=== PATIENT | male | born 1950 | race Caucasian/White ===

== ENCOUNTER 2017-01-10 18:31 | Inpatient (IN) | payer MEDICARE, MEDICAID ==
[~2017-01-10] VITALS: Ht 182.9 cm; Wt 97.2 kg
[~2017-01-10 18:31] MED LIST: FLO4 PO; GLU5 PO; LISINOPRIL40 MG PO; METFORMIN HCL1000 MG PO; PAROXETINE HCL20 M1 PO; SIMVASTATIN40 M1 PO; TRAMADOL HCL50 MG PO; ULT50 PO
--- NOTE | 2017-01-10 18:37 | NUR ---
PT AMBULATORY TO LOBBY. PT A&OX4, BREATHING E/U. PT AWAITING ROOM AVAILABILITY.
--- NOTE | 2017-01-10 19:22 | NUR ---
REC'D PT AAOX4, SPEECH CLEAR. C/O GENERALIZED WEAKNESS. ALSO STATES 3 WEEKS AGO SHE HAD LEFT SIDE CHEST PAIN WITH NUMBNESS TO LEFT ARM. C/O LANE, WILL MEDICATE ORDERED. AMBULATORY WITH STEADY GAIT. ON RA, BREATHING E/U, NO SOB NOTED. WILL CONTINUE TO MONITOR.
[2017-01-10 19:38] LABS: RED CELL DISTRIBUTION WIDTH 13.6 % (11.5-14.5)
[2017-01-10 19:39] LABS: CALCIUM 8.7 mg/dL (8.5-10.1); CARBON DIOXIDE 26.7 mmol/L (21-32); CREATININE SERUM 1.3 mg/dL (0.7-1.3); POTASSIUM SERUM 4.8 mmol/L (3.5-5.1)
--- NOTE | 2017-01-10 19:40 | NUR ---
PT AMBULATED TO RESTROOM WITH STEADY GAIT TO VOID, SENT TO LAB.
[2017-01-10 19:43] LABS: ALBUMIN 3.7 g/dL (3.4-5.0); BILIRUBIN TOTAL 0.37 mg/dL (0.20-1.00)
[2017-01-10 19:56] LABS: PLATELET COUNT 73 x10^3mcL (130-400)
--- NOTE | 2017-01-10 19:57 | NUR ---
DR. TAVERAS IN TO SEE PT FOR MSE
[2017-01-10] MEDS ORDERED: LANTUS SOLOS100 U/M1 SQ (20:05)
[2017-01-10 20:11] LABS: UA SPECIFIC GRAVITY >=1.030 (1.005-1.035); microscopic required? YES; urine erythrocyte NEGATIVE (NEGATIVE)
[2017-01-10 20:34] LABS: AMPHETAMINE QUAL UR NONE DETECTED (NEG <=1000)
[2017-01-10 20:37] LABS: MAGNESIUM 2.3 mg/dL (1.8-2.4); PHOSPHOROUS 4.4 mg/dL (2.5-4.9)
[2017-01-10 20:41] LABS: CHOLESTEROL/HDL RATIO 3.5
--- NOTE | 2017-01-10 20:41 | NUR ---
REPORT GIVEN TO JUVE JOSHUA FOR CONTINUITY OF CARE IN [facility]
[2017-01-10 20:46] LABS: FREE T4 1.42 ng/dL (0.76-1.46); FREE THYROXINE INDEX 4.3 ug/dL (1.4-4.5)
[2017-01-10 20:49] LABS: T3 TOTAL 1.76 ng/mL
[2017-01-10 21:10] VITALS: BP 126/77
[2017-01-10 21:12] LABS: ATYPICAL LYMPH 2 %; BAND NEUTROPHIL 5 % (0-10); METAMYELOCTE 1 % (0-2); MONOCYTE 18 % (0-7); PATH REVIEW for HEMA YES; SEGMENTED NEUTROPHILS 43 % (37-75); rbc morphology (normal/abnorm) NORMAL (NORMAL)
--- NOTE | 2017-01-10 21:15 | NUR ---
RECEIVED PT FROM ED VIA NIR. ORIENTED PT TO ROOM AND SURROUNDINGS. IV NOTED TO LFA PATENT AND INTACT. TELE 52 PLACED ON PT READING NSR. INSTRUCTED PT ON THE USE OF CALL LIGHT FOR ASSISTANCE. ENDORSED PT TO PRIMARY NURSE MITCHEL
[2017-01-10 21:56] VITALS: BP 126/77
--- NOTE | 2017-01-10 22:20 | NUR ---
RECEIVED PT FROM JOSIANE JOSE. PT AOX4. TELE # 52, SR. DENIES CP/PRESSURE. PULSES PRESENT, NO EDEMA NOTED. LUNG SOUNDS CLEAR, ON RA. DENIES SOB/DIFFICULTY BREATHING. BOWEL SOUNDS ACTIVE. VOIDS FREELY. AMBULATORY. SKIN INTACT. IV IN LFA, INTACT AND PATENT. BED IN LOWEST POSITION. CALL LIGHT WITHIN REACH. WILL CONTINUE TO MONITOR.
--- NOTE | 2017-01-11 01:10 | NUR ---
PT RESTING IN BED. RR EVEN AND UNLABORED. NO ACUTE DISTRESS NOTED. CALL LIGHT WITHIN REACH. BED IN LOWEST POSITION. CALL LIGHT WITHIN REACH. WILL CONTINUE TO MONITOR.
[2017-01-11 05:32] VITALS: BP 133/79
[2017-01-11 06:49] LABS: CALCIUM 7.8 mg/dL (8.5-10.1); CARBON DIOXIDE 23.3 mmol/L (21-32); CHLORIDE SERUM 106 mmol/L (98-107); CREATININE SERUM 0.8 mg/dL (0.7-1.3); GFR1 > 60 mL/min; GLUCOSE SERUM 78 mg/dL (74-106); POTASSIUM SERUM 3.9 mmol/L (3.5-5.1); SODIUM SERUM 140 mmol/L (136-145)
[2017-01-11 07:00] LABS: RED CELL DISTRIBUTION WIDTH 13.8 % (11.5-14.5)
[2017-01-11 07:02] LABS: PLATELET COUNT 53 x10^3mcL (130-400)
--- NOTE | 2017-01-11 07:30 | NUR ---
PATIENT RECEIVED. AT THIS TIME THE PATIENT IS RESTING IN BED. NO SIGNS OF ACUTE DISTRESS. IV INFUSING PER ORDER. TELE MONITOR IN PLACE. PATIENT DENIES PAIN. NO SOB NOTED. WILL CONTINUE TO MONITOR.
[2017-01-11 08:08] LABS: ATYPICAL LYMPH 2 %; BAND NEUTROPHIL 6 % (0-10); BASOPHIL 0 % (0-2); SEGMENTED NEUTROPHILS 45 % (37-75)
[2017-01-11 08:09] LABS: MONOCYTE 16 % (0-7)
--- NOTE | 2017-01-11 09:30 | NUR ---
PHYSICIANS MADE ROUNDS AND UPDATED THE PATIENT ON THE PLAN OF CARE AT THIS TIME. PATIENT IS AGREEABLE TO PLAN OF CARE. PATIENT WAS NOT STARTED ON HEPARIN DRIP BY PHYSICIANS DUE TO LOW PLATELET COUNT. AT THIS TIME THE PATIENT IS RESTING IN BED. DENIES PAIN. NO SOB NOTED. VITAL SIGNS STABLE. WILL CONTINUE TO MONITOR.
[2017-01-11 10:01] VITALS: BP 144/86
[2017-01-11 14:38] VITALS: BP 122/69
--- NOTE | 2017-01-11 15:00 | NUR ---
PATIENT IS RESTING IN BED WITH FAMILY AT BEDSIDE. AT THIS TIME THE PATIENT HAS NO C/O CHEST PAIN. VITAL SIGNS ARE STABLE. IV INFUSING PER ORDER. WILL CONTINUE TO MONITOR.
[2017-01-11 17:04] VITALS: BP 137/83
--- NOTE | 2017-01-11 18:40 | NUR ---
PT IS IN BED WITH FAMILY VISITING AT BEDSIDE. PATIENT DENIES PAIN AT THIS TIME. NO SOB NOTED. IV INFUSING PER ORDER. WILL CONTINUE TO MONITOR AND ENDORSE TO NEXT SHIFT AT SHIFT CHANGE.
--- NOTE | 2017-01-11 20:00 | NUR ---
PT A/A/O X4, FAMILY AT BEDSIDE. PT DENIES DIZZINESS AND HEADACHE. BREATH SOUNDS CLEAR. BREATHING EVEN AND UNLABORED ON ROOM AIR. DENIES CHEST PAIN AND PRESSURE. BOWEL SOUNDS ACTIVE. NO C/O N/V AND ABD PAIN. IV INTACT ON THE LEFT FOREARM INFUSING WITH NS AT 100 ML/HR. MADE PT COMFORTABLE. PLACED CALL LIGHT WITH IN REACH. WILL CONTINUE TO MONITOR.
--- NOTE | 2017-01-11 20:24 | NUR ---
PT C/O LEFT HIP PAIN. GAVE PT MORPHINE IVP. PT TOLERATED IT WELL. WILL CONTINUE TO MONITOR.
[2017-01-11 21:03] VITALS: Ht 182.9 cm; Wt 97.2 kg
[2017-01-11 22:02] VITALS: BP 125/83
--- NOTE | 2017-01-12 00:36 | NUR ---
PT RESTING WITH EYES CLOSED. NO DISTRESS AND DISCOMFORT NOTED. WILL CONTINUE TO MONITOR.
[2017-01-12 05:49] VITALS: BP 139/81
--- NOTE | 2017-01-12 06:34 | NUR ---
PT QUIET AND RESTING. NO C/O PAIN THUS FAR. IV INTACT AND INFUSING ORDERED. PT SIGNED CONSENT FOR CARDIAC CATH USING GROUND INSTRUCTOR ADVANCED PHONE WITH INDUSTRIAL ORGANIZATIONAL PSYCHOLOGIST # [id number]. WILL ENDORSE TO THE AM NURSE ACCORDINGLY.
--- NOTE | 2017-01-12 08:26 | NUR ---
PT RECEIVED. AT THIS TIME THE PATIENT IS RESTING IN BED. AAOX4. TELE [address] RESPIRATIONS ARE EVEN AN UNLABORED ON ROOM AIR. PATIENT DENIES ALL PAIN. NO SOB. DENIES N/V. PATIENT IS AMBULATORY WITH STEADY GAIT. NS INFUSING AT 100ML/HR IN LFA. ALL SAFETY PRECAUTIONS IN PLACE. WILL CONTINUE TO MONITOR.
[2017-01-12 09:29] VITALS: BP 133/76
--- NOTE | 2017-01-12 12:00 | NUR ---
PT HAS BEEN RESTING IN BED AND INTERACTING WITH FAMILY AT BEDSIDE. PATIENT HAS BEEN OCCASIONALLY AMBULATING THROUGH THE HALLWAYS THROUGHOUT THE SHIFT. GAIT IS STEADY AND BALANCED. VITAL SIGNS STABLE. NO COMPLAINTS OF PAIN. WILL CONTINUE TO MONITOR. ALL SAFETY PRECAUTIONS IN PLACE.
--- NOTE | 2017-01-12 14:00 | NUR ---
PATIENT HAS BEEN RESTING IN BED. NO C/O PAIN AT THIS TIME. VITAL SIGNS STABLE. NO ACUTE DISTRESS NOTED. NO SOB. DENIES CHEST PAIN. WILL CONTINUE TO MONITOR. ALL SAFETY PRECAUTIONS IN PLACE.
[2017-01-12 16:13] VITALS: BP 133/76
[2017-01-12 17:06] VITALS: BP 134/75
--- NOTE | 2017-01-12 17:40 | NUR ---
TR BAND HAS BEEN REMOVED FROM PATIENT AT THIS TIME. NO BLEEDING IS PRESENT. PATIENT CONTINUES TO USE ARM BRACE TO LIMIT MOVEMENT OF EXTREMITY. INSERTION SITE FOR CATHETER HAS BEEN COVERED WITH A BANDAID. WILL CONTINUE TO MONITOR FOR BLEEDING. NO SIGNS OF ACUTE DISTRESS ON PATIENT AT THIS TIME.
--- NOTE | 2017-01-12 17:49 | NUR ---
PT IS COMPLAINING OF 6/10 CHEST PAIN AT THIS TIME. DENIES NAUSEA, DENIES DIZZINESS. NO SOB AT THIS TIME. PATIENT RESPIRATIONS UNLABORED ON ROOM AIR. PT STATES HE HAS AN ACHE IN THE RIGHT SIDE OF HIS CHEST. BP 139/83. P78. SPO2 96%. T 98.2F. DR DE PAZ HAS BEEN NOTIFIED AND STATES HE WILL SEE THE PATIENT. WILL GIVE NITROSTAT.
--- NOTE | 2017-01-12 18:00 | NUR ---
PT DENIES ANY PAIN AT THIS MOMENT. STATES CHEST PAIN IS NOT PRESENT. NITROSTAT NOT GIVEN BECAUSE PATIENT STATES THERE IS NO CHEST PAIN. DR DE PAZ ASSESSED PATIENT AT THIS TIME. WILL AWAIT NEW ORDERS. WILL CONTINUE TO MONITOR.
--- NOTE | 2017-01-12 19:20 | NUR ---
PATIENT IS CURRENTLY INTERACTING WITH HIS FAMILY AT BEDSIDE. NO C/O CHEST PAIN. NO SOB. NO SIGNS OF ACUTE DISTRESS NOTED. NO DIZZINESS. NO BLEEDING FROM INCISION SITE FOR ANGIOGRAPHY. PATIENT HAS BEEN ENDORSED TO DIRT SUPERVISOR NURSE. ALL SAFETY MEASURES IN PLACE.
--- NOTE | 2017-01-12 19:45 | NUR ---
PT AWAKE AND ALERT C/O LEFT HIP PAIN. GAVE PT NORCO PO. PT TOLERATED IT WELL. ENCOURAGE THE PT NOT TO DRIVE AFTER TAKING MEDICATION. IV WAS DC'D FROM THE LEFT FOREARM. AND TELE MONITOR TAKEN OF. PT NOTED WITH A SLING ON THE RIGHT WRIST, S/P CARDIAC CATH. NO BLEEDING NOTED ON SITE. GAVE PT DC INSTRUCTION. PT AND THE PATIENTS FAMILY VERBALIZED UNDERSTANDING. PT WAS DC'D AMBULATING ACCOMPANIED BY THE COIL INSPECTOR AND THE PATIENTS FAMILY.
== END 2017-01-12 19:45 | disposition home or self-care (01) | DRG 640 ==
LOC: ED 18:31 → DU 19:52
PROVIDERS: Emergency Medicine; Internal Medicine Interventional Cardiology; ADMIT Family Medicine
PROC: B2111ZZ Fluoroscopy of Multiple Coronary Arteries using Low Osmolar Contrast (ICD-10-PCS; 2017-01-12)
PROC: B2151ZZ Fluoroscopy of Left Heart using Low Osmolar Contrast (ICD-10-PCS; 2017-01-12)
PROC: 4A023N7 Measurement of Cardiac Sampling and Pressure, Left Heart, Percutaneous Approach (ICD-10-PCS; principal; 2017-01-12 12:00)
DX: E86.0 Dehydration (principal); N17.0 Acute kidney failure with tubular necrosis; E11.65 Type 2 diabetes mellitus with hyperglycemia; R74.0 Nonspecific elevation of levels of transaminase and lactic acid dehydrogenase [LDH]; E78.2 Mixed hyperlipidemia; I10 Essential (primary) hypertension; N40.0 Benign prostatic hyperplasia without lower urinary tract symptoms; Z68.29 Body mass index [BMI] 29.0-29.9, adult; Z87.891 Personal history of nicotine dependence; Z96.642 Presence of left artificial hip joint; Z79.4 Long term (current) use of insulin
CPT/HCPCS: CLHCL; 82962; 83880; 84439; 85060; C1769; C1887; C1894; J0696; J1644; J1885; J2001; J2250; J2270; J3010; J3490; J7030; J7050; Q0092; Q9967

== ENCOUNTER 2018-11-04 17:56 | Inpatient (IN) | payer OTHER, MEDICAID ==
[~2018-11-04] VITALS: Ht 170.2 cm; Wt 103.6 kg
[~2018-11-04 17:56] MED LIST changes: +LANTUS SOLOS100 U/M1 SQ
[2018-11-04 18:01] VITALS: Ht 170.2 cm; Wt 103.6 kg
--- NOTE | 2018-11-04 18:01 | NUR ---
PT BIBA FROM [facility] FOR CHEST PAIN THAT STARTED APPROX 1 HR PRIOR TO ARRIVAL TO ED. PT WAS EATING DINNER WITH FAMILY WHEN CHEST PRESSURE STARTED TO LEFT SIDE OF CHEST RADIATING TO BACK AND TO BOTH ARMS. PT STS HE TOOK HIS "HIGH BLOOD PRESSURE MEDICATION". PT ALSO STS PRIOR TO MEDICS ARRIVAL, HIS BS WAS 500 AND GAVE HIMSELF A DOSE OF INSULIN. UPON MEDICS ARRIVAL, MEDICS STATED THAT PT WAS IN MODERATE DISTRESS WITH CHEST PAIN AT 8/10. MEDICS GAVE PT 250ML IV BOLUS, 1 NITRO SPRAY AND 1 0.4MG SL NITRO, AND 325MG ASA PLASTERER HELPER. UPON ARRIVAL, PT HAD RESIDUAL CHEST PAIN AT 5/10. MEDICS STARTED 18G IV TO L AC. PT IS AAOX4, RESPS E/U; SPEAKING IN CLEAR AND COMPLETE SENTENCES. CONNECTED TO FULL MACHINE STRAP BUCKLER AND OXYGEN AT THIS TIME
--- NOTE | 2018-11-04 18:17 | NUR ---
RT AT BEDSIDE FOR ABG
--- NOTE | 2018-11-04 18:18 | NUR ---
PT EDUCATED ON MEDICATION PER EMAR; VERBALIZED UNDERSTANDING. MEDICATED AND TOELRATED WELL. CONNECTED TO FULL CM AND OXYGEN AT THIS TIME
--- NOTE | 2018-11-04 18:25 | NUR ---
LAB AT BEDSIDE WITH PT .
--- NOTE | 2018-11-04 18:33 | NUR ---
PROVIDED WITH URINAL TO PROVIDE URINE SAMPLE
[2018-11-04 18:51] LABS: BASOPHIL % 0.3 % (0-2); PLATELET COUNT 159 x10^3mcL (130-400); RED CELL DISTRIBUTION WIDTH 13.3 % (11.5-14.5)
[2018-11-04 19:12] LABS: CALCIUM 8.5 mg/dL (8.5-10.1); CARBON DIOXIDE 22.3 mmol/L (21-32); CHLORIDE SERUM 101 mmol/L (98-107); CREATININE SERUM 0.9 mg/dL (0.7-1.3); GFR1 > 60 mL/min; GLUCOSE SERUM 383 mg/dL (74-106); SODIUM SERUM 135 mmol/L (136-145)
--- NOTE | 2018-11-04 19:15 | NUR ---
REPORT GIVEN FROM ROSALINDA JOSHUA. PT A&0X4, SPEAKING FULL CLEAR SENTENCES. BREATHING EVEN AND UNLABORED. CM AND [address] PT LAYING WITH HOB RAISED IN POSITION OF COMFORT. FAMILY AT BEDSIDE. WILL CONTINUE TO MONITOR.
--- NOTE | 2018-11-04 19:16 | NUR ---
GAVE REPORT TO JOSIANE CASTANON
[2018-11-04 19:18] LABS: ALBUMIN 3.6 g/dL (3.4-5.0); ALKALINE PHOSPHATASE 116 U/L (46-116); ALT/SGPT 44 U/L (16-63); AST/SGOT 11 U/L (15-37); BILIRUBIN TOTAL 0.3 mg/dL (0.20-1.00); CHOLESTEROL 172 mg/dL (<200); LIPASE 157 IU/L (73-393); TOTAL PROTEIN, SERUM 6.8 g/dL (6.4-8.2)
[2018-11-04 19:23] LABS: CHOLESTEROL/HDL RATIO 6.6; HDL CHOLESTEROL 26 mg/dL (40-60); TRIGLYCERIDES 416 mg/dL (<150)
[2018-11-04 19:24] LABS: T3 TOTAL 1.1 ng/mL
[2018-11-04 19:27] LABS: FREE T4 0.98 ng/dL (0.76-1.46); FREE THYROXINE INDEX 2.2 ug/dL (1.4-4.5); T4(THYROXINE) 6.6 ug/dL (4.7-13.3)
[2018-11-04 19:33] LABS: microscopic required? NO
[2018-11-04 19:38] LABS: urine erythrocyte NEGATIVE (NEGATIVE)
--- NOTE | 2018-11-04 20:05 | NUR ---
OKAY PER DR SPAIN TO GIVE INSULIN REGULAR 8 U IV FOR BS OF 342.
--- NOTE | 2018-11-04 20:20 | NUR ---
FAMILY ASKED ABOUT PLAN OF CARE AT THIS TIME. EDUCATED PATIENT THAT DR SPAIN IS REVIEWING THE PATIENTS RESULTS AND WILL SPEAK TO THE FAMILY ABOUT PLAN OF CARE. DR SPAIN AWARE OF PTS AND FAMILY REQUEST AND STATES HE WILL SPEAK WITH FAMILY. PT IN NAD. BREATHING EVEN AND UNLABORED. PT A&0X4, SPEAKING FULL CLEAR SENTENCES. CM AND [address] FAMILY AT BEDSIDE. WILL CONTINUE TO MONITOR.
--- NOTE | 2018-11-04 20:44 | NUR ---
CALLED RYAN AT [facility] TO UPDATE ABOUT PATIENT STATUS. QUESTIONS ANSWERED AND RYAN DENIED ANY FURTHER QUESTIONS AT THIS TIME.
--- NOTE | 2018-11-04 21:39 | NUR ---
REPORT GIVEN TO TRACY JOSHUA.
--- NOTE | 2018-11-04 21:45 | NUR ---
PT TRANSFERED TO TELE AT THIS TIME IN NAD. BREATHING EVEN AND UNLABORED. PT AWAKE AND ALERT, SPEAKING FULL CLEAR SENTENCES. PT AND FAMILY VERBALIZED UNDERSTANDING OF PLAN OF CARE. PT TRANSFERED VIA [employer] [employer] ACCOMPANIED BY ME AND MICHAELA EMT.
[2018-11-04 22:07] VITALS: BP 142/83
--- NOTE | 2018-11-04 22:10 | NUR ---
RECEIVED PT FROM ED VIA GAVIN. ORIENTED PT TO ROOM AND SURROUNDINGS. IV NOTED TO LAC PATENT AND INTACT. 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 INSTRUCTED PT ON THE USE OF CALL LIGHT FOR ASSISTANCE. ENDORSED PT TO PRIMARY NURSE TRACY
--- NOTE | 2018-11-04 22:34 | NUR ---
[facility] PAGED FOR ADMITTING ORDERS
--- NOTE | 2018-11-04 22:50 | NUR ---
RECIEVED PT FROM SURU RN IN NO ACUTE DISTRESS. PLACED ON TELE #27, SR WITH 1ST DEGREE AND BBB. DENIES CP AT THIS TIME. SL TO LAC, PATENT. ORIENTED TO ROOM. BED IN LOWEST POSITION, 2 SIDE RAILS UP, CALL LIGHT IN REACH. INSTRUCTED TO CALL FOR ASSISTANCE.
[2018-11-05 03:50] LABS: CK-MB 2.5 ng/mL (0-3.6)
[2018-11-05 06:05] VITALS: BP 142/91
--- NOTE | 2018-11-05 06:13 | NUR ---
NO C/O CP OVERNIGHT. NO ACUTE DISTRESS NOTED. WILL ENDORSE TO ONCOMING RN
[2018-11-05 06:35] LABS: BASOPHIL % 0.2 % (0-2); PLATELET COUNT 164 x10^3mcL (130-400)
[2018-11-05 06:52] LABS: ALBUMIN 3.4 g/dL (3.4-5.0); ALKALINE PHOSPHATASE 75 U/L (46-116); ALT/SGPT 42 U/L (16-63); AST/SGOT 16 U/L (15-37); BILIRUBIN TOTAL 0.42 mg/dL (0.20-1.00); CALCIUM 8.6 mg/dL (8.5-10.1); CARBON DIOXIDE 22.7 mmol/L (21-32); CHLORIDE SERUM 107 mmol/L (98-107); CREATININE SERUM 0.8 mg/dL (0.7-1.3); GFR1 > 60 mL/min; GLUCOSE SERUM 206 mg/dL (74-106); POTASSIUM SERUM 4.3 mmol/L (3.5-5.1); SODIUM SERUM 142 mmol/L (136-145); TOTAL PROTEIN, SERUM 6.7 g/dL (6.4-8.2)
--- NOTE | 2018-11-05 07:35 | NUR ---
RECEIVED PT'S REPORT FROM LEAVING NURSE. PT REST ON BED, AROUSABLE WITH VERBALLY RESPONSE. PT DENIED ANY DISCOMFORT AT THIS TIME. PT BREATHING ON O2 2L VIA NC, EVEN, UNLABORED. IV SITE SALINE LOCK AT THIS TIME.
[2018-11-05 08:10] VITALS: BP 134/86
[2018-11-05 11:24] LABS: CK-MB 2.3 ng/mL (0-3.6)
--- NOTE | 2018-11-05 11:30 | NUR ---
GOT MT REPORT PT HAD 4 SEC VT. CHECKED PT, PT RESTING ON BED WITH HIS FAMILY MEMBERS AT BEDSIDE. PT DENIED ANY CHEST DISCOMFORT. WILL CONTINUE TO MONITOR.
[2018-11-05 13:17] VITALS: BP 147/86
--- NOTE | 2018-11-05 16:17 | NUR ---
DR. CHATTERJEE AWARE ABOUT PT HAD A EPISODE VT THIS MORNING. DR. CHATTERJEE TALKED TO DR. ROBLES TO HOLD PT'S DISCHARGE FOR ONE MORE DAY. START PT'S NEW MEDS. WILL CONTINUE TO MONITOR.
[2018-11-05 17:19] VITALS: BP 140/89
--- NOTE | 2018-11-05 18:15 | NUR ---
THROUGH DAY, PT NO COMPLAIN OF CHEST PAIN, BUT L LEG PAIN FOR PREVIOUS INJURY. PT REFUSED TO BE TRANSFERED TO [facility] FOR [facility]C CUTTER. TALKE TO DR. ROBLES TO KEEP PT TONIGHT BECAUSE PT HAD A EPISODE VT THIS MORNING. NEW MEDS PLAVIX AND TOPROL GIVEN. PT BREATHING ON RA, EVEN, UNLABORED. PT NO COMPLAIN OF SOB WITHOUT SOB. IV SITE SALINE LOCK. WILL ENDORSE PT'S CARE TO COMING NURSE.
--- NOTE | 2018-11-05 19:30 | NUR ---
PT IS A/O x4. ON TELE #27, SR WITH BBB. DENIES ANY CHEST PAIN OR PRESSURE. PULSES ARE PRESENT. NO EDEMA NOTED. LUNGS CLEAR IN ALL FEILDS. ON RA, DENIES ANY SOB. EQUAL CHEST RISE AND FALL. NO SIGN OF RESP DISTRESS. BOWEL SOUNDS PRESENT x4. DENIES ANY ABD PAIN OR DISTRESS. VOIDS FREELY. SKIN WARM AND INTACT. SALINE LOCKED ON LAC, INTACT AND PATENT. NO SIGN OF IRRITATION OR INFILTRATION NOTED. DENIES ANY PAIN AT THIS TIME. BED IS AT LOWEST SETTING. CALL LIGHT WITHIN REACH. WILL CONTINUE TO MONTIOR.
[2018-11-05 20:44] VITALS: BP 133/78
--- NOTE | 2018-11-06 02:08 | NUR ---
PT IS RESTING IN BED WITH BOTH EYES CLOSED. BREATHING EVEN AND UNLABORED. NO SIGN OF DISTRESS NOTED. BED IS AT LOWEST SETTING. CALL LIGHT WITHIN REACH. WILL CONTINUE TO MONTIOR.
[2018-11-06 05:58] VITALS: BP 140/81
--- NOTE | 2018-11-06 06:58 | NUR ---
PT RESTING IN BED. DENIES ANY PAIN OR DISTRESS. NO ACUTE EVENT OCCURED AT NIGHT. BED IS AT LOWEST SETTING. CALL LIGHT WITHIN REACH. WILL ENDORSE TO AM NURSE.
--- NOTE | 2018-11-06 07:40 | NUR ---
PATIENT RESTING IN BED, NO ACUTE DISTRESS NOTED. PATIENT ON ROOM AIR, DENIES SOB. PATIENT DENIES CHEST PAIN, TELE MONITOR IN PLACE. IV TO LAC SALINE LOCK, NO S/S OF INFILTRATION. CALL LIGHT WITHIN REACH, BED IN LOW POSITION. WILL CONTINUE TO MONITOR FOR CHANGES.
--- NOTE | 2018-11-06 08:14 | NUR ---
IT OPERATIONS MANAGER AT BEDSIDE.
[2018-11-06 09:20] VITALS: BP 136/85
[2018-11-06] MEDS ORDERED: CLOPIDOGREL75 M1 PO (10:33)
[2018-11-06] MEDS ORDERED: METOPROLOL SUCC25 M2 PO (10:33)
--- NOTE | 2018-11-06 11:40 | NUR ---
PATIENT IS UP AND AMBULATING HALLWAYS, NO ACUTE DISTRESS NOTED, ON ROOM AIR. STEADY, SLOW GAIT NOTED. WILL CONTINUE TO MONITOR PATIENT.
[2018-11-06 15:21] VITALS: BP 119/66
--- NOTE | 2018-11-06 15:35 | NUR ---
PATIENT WAS DISCHARGED HOME, PATIENT WAS TAKEN DOWN VIA WHEELCHAIR BY SENIOR LABEL SPECIALIST. PATIENT RECEIVED COPY OF D/C INSTRUCTION. PATIENT UNDERSTANDS AND AGREES WITH D/C PLAN OF CARE AND INSTRUCTIONS, INCLUDING FOLLOW UP WITH PCP AND MEDICATIONS. TELE MONITOR REMOVED, ARMBANDS REMOVED. IV TO LAC REMOVED, CATH INTACT. ALL QUESTIONS AND CONCERNS ADDRESSED. PATIENT TOOK HOME ALL PERSONAL BELONGING.
== END 2018-11-06 15:40 | disposition home or self-care (01) | DRG 291 ==
LOC: ED 17:56 → DU 21:08
PROVIDERS: Specialist; ADMIT Internal Medicine Pulmonary Disease
DX: I11.0 Hypertensive heart disease with heart failure (principal); E11.00 Type 2 diabetes mellitus with hyperosmolarity without nonketotic hyperglycemic-hyperosmolar coma (NKHHC); I50.9 Heart failure, unspecified; E11.65 Type 2 diabetes mellitus with hyperglycemia; I50.32 Chronic diastolic (congestive) heart failure; I42.9 Cardiomyopathy, unspecified; E78.5 Hyperlipidemia, unspecified; E66.01 Morbid (severe) obesity due to excess calories; Z68.33 Body mass index [BMI] 33.0-33.9, adult; Z79.4 Long term (current) use of insulin
CPT/HCPCS: 36600; 82962; 83880; 84439; G0378; J1815; J2270; J7030; Q0092

== ENCOUNTER 2019-05-15 10:12 | Emergency (ER) | payer OTHER, MEDICAID ==
[~2019-05-15] VITALS: Ht 172.7 cm; Wt 91.2 kg
[~2019-05-15 10:12] MED LIST changes: +CLOPIDOGREL75 M1 PO; +METOPROLOL SUCC25 M2 PO
[2019-05-15 10:32] VITALS: Ht 172.7 cm; Wt 91.2 kg
[2019-05-15 12:10] LABS: PLATELET COUNT 177 x10^3mcL (130-400)
[2019-05-15 12:11] LABS: BASOPHIL % 0 % (0-2); RED CELL DISTRIBUTION WIDTH 15.9 % (11.5-14.5)
[2019-05-15 12:24] LABS: CALCIUM 9.1 mg/dL (8.5-10.1); CARBON DIOXIDE 24.9 mmol/L (21-32); CREATININE SERUM 1.4 mg/dL (0.7-1.3); POTASSIUM SERUM 3.8 mmol/L (3.5-5.1)
[2019-05-15 12:29] LABS: ALBUMIN 4.4 g/dL (3.4-5.0); BILIRUBIN TOTAL 0.6 mg/dL (0.20-1.00)
[2019-05-15 12:41] LABS: TOTAL PROTEIN, SERUM 8.9 g/dL (6.4-8.2)
[2019-05-15 16:30] VITALS: BP 138/76
== END 2019-05-15 16:50 | disposition home or self-care (01) ==
LOC: ED 10:12
PROVIDERS: Emergency Medicine
DX: E86.0 Dehydration (principal); I12.9 Hypertensive chronic kidney disease with stage 1 through stage 4 chronic kidney disease, or unspecified chronic kidney disease; E11.22 Type 2 diabetes mellitus with diabetic chronic kidney disease; N18.9 Chronic kidney disease, unspecified; E78.00 Pure hypercholesterolemia, unspecified; R10.814 Left lower quadrant abdominal tenderness; R19.7 Diarrhea, unspecified; Z86.19 Personal history of other infectious and parasitic diseases; Z87.11 Personal history of peptic ulcer disease
CPT/HCPCS: 87046; 87046-59; 87804; J7030

== ENCOUNTER 2019-06-06 01:43 | Emergency (ER) | payer OTHER, MEDICAID ==
[~2019-06-06] VITALS: Ht 172.7 cm; Wt 92.6 kg
[2019-06-06 01:54] VITALS: Ht 172.7 cm; Wt 92.6 kg
[2019-06-06 05:54] VITALS: BP 135/68
== END 2019-06-06 05:54 | disposition home or self-care (01) ==
LOC: ED 01:43
DX: K59.00 Constipation, unspecified (principal); I10 Essential (primary) hypertension; E11.9 Type 2 diabetes mellitus without complications; E78.00 Pure hypercholesterolemia, unspecified